=== PATIENT | male | born 1980 | race Caucasian/White ===

== ENCOUNTER 2019-02-10 02:24 | Emergency (ER) | payer MEDICAID ==
[~2019-02-10] VITALS: Ht 167.6 cm; Wt 69.9 kg
[2019-02-10 02:26] VITALS: Ht 167.6 cm; Wt 69.9 kg
[2019-02-10] MEDS ORDERED: LIDOCAINE 1%/EPI (MDV) 50 ML INJ INJ ONE ×2 (05:00→05:30)
[2019-02-10] MEDS ORDERED: LIDOCAINE 1%/EPI 30 ML INJ INJ ONE (05:30)
--- NOTE | 2019-02-10 06:52 | ERD ---
ER Documentation Chief Complaint Chief Complaint BLEEDING FROM R WISDOM TOOTH EXTRACTION SITE HPI This is a 38-year-old male who presents to the ED complaining of consistent bleeding status post wisdom tooth extraction yesterday. Patient states he had 3 teeth removed. He states he has been bleeding from his right lower extraction site since yesterday. He states he is not on any antiplatelets or anticoagulants. Denies any dental pain. Denies any fevers or chills. Denies any other symptoms. Denies any recent trauma. ROS All systems reviewed and are negative except as per history of present illness. Medications Home Meds No Active Prescriptions or Reported Meds Allergies Allergies: Coded Allergies: No Known Allergy (Unverified , 11/22/14) PMhx/Soc History of Surgery: No Anesthesia Reaction: No Hx Neurological Disorder: No Hx Respiratory Disorders: No Hx Cardiac Disorders: No Hx Psychiatric Problems: No Hx Miscellaneous Medical Probl: No Hx Alcohol Use: No Hx Substance Use: No Hx Tobacco Use: No Physical Exam Vitals Vital Signs Date Temp Pulse Resp B/P (MAP) Pulse Ox O2 O2 Flow FiO2 Time Delivery Rate 02/10/19 98.2 60 18 156/90 98 02:26 (112) Physical Exam Const: No acute distress Head: Atraumatic Eyes: Normal Conjunctiva. EOMI. PERRL. ENT: + Bleeding from right lower gums. No anterior or posterior nasal bleeding. Neck: Full range of motion. No meningismus. Resp: Clear to auscultation bilaterally Ext: No cyanosis, or edema Neur: Awake and alert Psych: Normal Mood and Affect Results 24 hrs Current Medications Medications Dose Sig/Markus Start Time Status Last (Trade) Ordered Route PRN Stop Time Admin Dose Reason Admin Lidocaine/ 5 ml ONCE ONCE 02/10/19 DC Epinephrine INJ 05:00 (Xylocaine 02/10/19 05:06 1%/ Epi (Mdv)) Lidocaine/ 50 ml ONCE ONCE 02/10/19 DC Epinephrine INJ 05:30 (Xylocaine 02/10/19 05:30 1%/ Epi (Mdv)) Lidocaine/ DOSE PER MD ONCE ONCE 02/10/19 DC Epinephrine INJ 05:30 (Xylocaine 02/10/19 05:31 1%/ Epi (Pf)) Procedures/MDM This is a 38-year-old male presents with bleeding status post wisdom tooth extraction yesterday. No relief with direct pressure or lidocaine. Lastly, Surgicel was applied with some improvement and less bleeding. Pressure dressing was applied and patient was discharged home to follow-up with his dentist later today. There is no evidence of surrounding infection, cellulitis, or abscess. His vital signs are stable and he is otherwise hemodynamically stable. Strict return precautions were discussed. PRESCRIPTIONS: Tylenol with codeine SPECIALIST FOLLOW UP RECOMMENDED: Dentist Patient has been advised to follow up with primary care in 1-2 days. Blood Pressure Assessment: Patient's blood pressure was elevated (>120/80) but appears stable without evidence of hypertension emergency or urgency. The patient was counseled about the risks of hypertension and urged to pursue outpatient monitoring and therapy within a week with their primary care physician. Departure Diagnosis: Primary Impression: Surgical wound hemorrhage after dental procedure Condition: Stable Patient Instructions: Your Dental Visit Referrals: COMMUNITY CLINICS YOU HAVE RECEIVED A MEDICAL SCREENING EXAM AND THE RESULTS INDICATE THAT YOU DO NOT HAVE A CONDITION THAT REQUIRES URGENT TREATMENT IN THE EMERGENCY DEPARTMENT. FURTHER EVALUATION AND TREATMENT OF YOUR CONDITION CAN WAIT UNTIL YOU ARE SEEN I N YOUR DOCTORS OFFICE WITHIN THE NEXT 1-2 DAYS. IT IS YOUR RESPONSIBILITY TO MAKE AN APPOINTMENT FOR [facility]ARE. IF YOU HAVE A PRIMARY DOCTOR --you should call your primary doctor and schedule an appointment IF YOU DO NOT HAVE A PRIMARY DOCTOR YOU CAN CALL OUR PHYSICIAN REFERRAL HOTLINE AT IF YOU CAN NOT AFFORD TO SEE A PHYSICIAN YOU CAN CHOSE FROM THE FOLLOWING [facility] CLINICS [facility] [address] [facility]. [facility] [address]. [facility] [address] [facility] [facility] [address] [facility] [facility] [address] [facility]. [facility]. [address] [facility]. [facility] YOU HAVE RECEIVED A MEDICAL SCREENING EXAM AND THE RESULTS INDICATE THAT YOU DO NOT HAVE A CONDITION THAT REQUIRES URGENT TREATMENT IN THE EMERGENCY DEPARTMENT. FURTHER EVALUATION AND TREATMENT OF YOUR CONDITION CAN WAIT UNTIL YOU ARE SEEN IN YOUR DOCTORS OFFICE WITHIN THE NEXT 1-2 DAYS. IT IS YOUR RESPONSIBILITY TO MAKE AN APPOINTMENT FOR [facility]. IF YOU HAVE A PRIMARY DOCTOR --you should call your primary doctor and schedule and appointment IF YOU DO NOT HAVE A PRIMARY DOCTOR YOU CAN CALL OUR PHYSICIAN REFERRAL HOTLINE AT . IF YOU CAN NOT AFFORD TO SEE A PHYSICIAN YOU CAN CHOSE FROM THE FOLLOWING [facility] INSTITUTIONS: [facility] [address] [place] [address] [facility] [address] [place] [address] [facility] [address] [place] [address] Additional Instructions: You must see your dentist today. Return here for any worsening symptoms. CARMEN SAMANO PA-C Feb 10, 2019 06:52
[2019-02-10] MEDS ORDERED: ACET1TAB40 PO (06:53)
[2019-02-10 06:58] VITALS: BP 140/78; PULSE 76; RESP 18
== END 2019-02-10 07:00 | disposition home or self-care (01) ==
LOC: FTE 02:24
DX: K91.841 Postprocedural hemorrhage of a digestive system organ or structure following other procedure (principal)
CPT/HCPCS: Z7502; Z7610; 99282